=== PATIENT | female | born 1995 | race Caucasian/White ===

== ENCOUNTER 2023-02-18 10:42 | Inpatient (IN) | payer OTHER ==
[~2023-02-18] VITALS: Ht 160 cm; Wt 72.6 kg
[2023-02-18 12:31] VITALS: BP 139/81
--- NOTE | 2023-02-19 07:10 | PR ---
[facility] [address] [place], [place] [address] Signed PP Progress Notes Datetime Report Generated by CPLuis Armando: 02/19/2023 07:10 SUBJECTIVE: [id number] Pain: Within Normal Limits Nausea/Vomiting: Denies Flatus: Yes Vital Signs: [id number] Vital Signs: Reviewed Notable Details: Tachycardia noted overnight, RRR on bedside evaluation EXAM: Ongoing Cardiovascular: Normal Respiratory: Normal Abdomen/Uterus: Normal Lochia: Normal Breasts: Normal Extremities: Normal Progress: Normal Exam Comments: General: Sitting up in bed, holding baby Lungs: No dyspnea or retractions CV: RRR, no tachycardia on exam, peripheral (radial) pulses normal Abd: SNTND, FFBU Ext: Trace edema BLLE, neg Yoan's BL IMPRESSION/PLAN/PROCEDURES: [id number] Impression: Normal Progression Plan: Continue Present Management; Discharge Progress Notes: Pt is a 27 yo [id number] PPD#1 s/p -progressing well postop -hgb 9.9 from 12.0 on admission, pt reports she was very dehydrated on admission. Tachycardic in the 120's overnight, normal rate and rhythm at bedside now, denies dizziness/ lightheadedness. Was on oral iron prior to delivery. Plan to continue -desires DC to home today, well, anticipating NFP for contraception Signing Physician: Homar Juan DO Copies: *Electronically Signed* 02/19/23 0710 HOMAR JUAN DO PATIENT NAME: CAROL BHATT PROGRESS NOTE DATE OF : 94 PHYSICIAN: HOMAR JUAN DO RPT #: [id number] REPORT IS CONFIDENTIAL AND NOT TO BE RELEASED WITHOUT AUTHORIZATION [address] [facility] [place] [place] [address] Signed ~ *Electronically Signed* 02/19/23 0710 HOMAR JUAN DO PATIENT NAME: CAROL BHATT PROGRESS NOTE DATE OF : 94 PHYSICIAN: HOMAR JUAN DO RPT #: [id number] REPORT IS CONFIDENTIAL AND NOT TO BE RELEASED WITHOUT AUTHORIZATION
== END 2023-02-19 16:45 | disposition home or self-care (01) | DRG 807 ==
LOC: FBCO 10:42 → FBC 11:14
PROVIDERS: ADMIT Obstetrics & Gynecology; ATTEND Obstetrics & Gynecology
PROC: 10E0XZZ Delivery of Products of Conception, External Approach (ICD-10-PCS; principal; 2023-02-18)
PROC: 0KQM0ZZ Repair Perineum Muscle, Open Approach (ICD-10-PCS; 2023-02-18)
PROC: 0UQMXZZ Repair Vulva, External Approach (ICD-10-PCS; 2023-02-18)
DX: O99.284 Endocrine, nutritional and metabolic diseases complicating childbirth (principal); Z37.0 Single live birth; E86.0 Dehydration; O70.1 Second degree perineal laceration during delivery; O99.214 Obesity complicating childbirth; Z67.20 Type B blood, Rh positive; Z62.810 Personal history of physical and sexual abuse in childhood; O71.82 Other specified trauma to perineum and vulva; Z3A.38 38 weeks gestation of pregnancy; Z87.891 Personal history of nicotine dependence; Z86.16 Personal history of COVID-19
CPT/HCPCS: 36415; 85027; 86850; 86900; 86901; 87502; A9270; J2590; U0002